=== PATIENT | female | born 1970 | race American Indian/Alaskan Native ===

== ENCOUNTER 2018-01-04 21:54 | Emergency (ER) | payer MEDICAID ==
[2018-01-04 22:16] VITALS: BP 125/79; PULSE 75; RESP 18; TEMP 98.2; O2SAT 95
--- NOTE | 2018-01-04 22:18 | ED PDOC ---
Arrival/HPI - General Historian: Patient <Rosetta Wiggins - Last Filed: 01/04/18 22:20> <Hank Ordoñez - Last Filed: 01/04/18 22:22> - General Time Seen by Provider: 01/04/18 21:57 - History of Present Illness Narrative History of Present Illness (Text): 01/04/18 22:15 47yo female who present to ED for removal of a lodged condom in her vagina. States they couldn't find the Condom yesterday after having sex and assumes is lodged in her vagina. She however denies abdominal pain, back pain, urinary symptoms, fever, other complaint. (FelicianoRosetta A) Past Medical History - Provider Review Nursing Documentation Reviewed: Yes <Rosetta Wiggins - Last Filed: 01/04/18 22:20> Family/Social History - Physician Review Nursing Documentation Reviewed: Yes Family/Social History: Unknown Family HX <Rosetta Wiggins - Last Filed: 01/04/18 22:20> Allergies/Home Meds <Rosetta Wiggins - Last Filed: 01/04/18 22:20> <Hank Ordoñez - Last Filed: 01/04/18 22:22> Allergies/Adverse Reactions: Allergies No Known Allergies Allergy (Verified 01/04/18 22:19) Review of Systems - Physician Review All systems were reviewed & negative as marked: Yes - Review of Systems Constitutional: Normal Eyes: Normal ENT: Normal Respiratory: Normal Cardiovascular: Normal Gastrointestinal: Normal Genitourinary Female: Other (Lodged condom) Musculoskeletal: Normal Skin: Normal Neurological: Normal Endocrine: Normal Hemo/Lymphatic: Normal Psychiatric: Normal <Rosetta Wiggins - Last Filed: 01/04/18 22:20> Physical Exam Vital Signs Reviewed: Yes Temperature: Afebrile Blood Pressure: Normal Pulse: Regular Respiratory Rate: Normal Appearance: Positive for: Well-Appearing, Non-Toxic, Comfortable Pain Distress: None Mental Status: Positive for: Alert and Oriented X 3 - Systems Exam Head: Present: Atraumatic, Normocephalic Pupils: Present: PERRL Extroacular Muscles: Present: EOMI Conjunctiva: Present: Normal Mouth: Present: Moist Mucous Membranes Neck: Present: Normal Range of Motion Respiratory/Chest: Present: Clear to Auscultation, Good Air Exchange. No: Respiratory Distress, Accessory Muscle Use Cardiovascular: Present: Regular Rate and Rhythm, Normal S1, S2. No: Murmurs Abdomen: Present: Normal Bowel Sounds. No: Tenderness, Distention, Peritoneal Signs Genitourinary/Pelvic Exam: Present: Other (Condom noted in vaginal vault) Back: Present: Normal Inspection Upper Extremity: Present: Normal Inspection. No: Cyanosis, Edema Lower Extremity: Present: Normal Inspection. No: Edema Neurological: Present: GCS=15, CN II-XII Intact, Speech Normal Skin: Present: Warm, Dry, Normal Color. No: Rashes Psychiatric: Present: Alert, Oriented x 3, Normal Insight, Normal Concentration <Rosetta Wiggins A - Last Filed: 01/04/18 22:20> Vital Signs Temp Pulse Resp BP Pulse Ox 01/04/18 22:15 98.2 F 75 18 125/79 95 Medical Decision Making <Rosetta Wiggins A - Last Filed: 01/04/18 22:20> <Hank Ordoñez - Last Filed: 01/04/18 22:22> ED Course and Treatment: 01/04/18 22:20 condom was noted in vaginal vault and was removed. Pt denied pain in ED. she was[laced on prophylactic abx. (Rosetta Wiggins A) - PA / DELIVERY DRIVER/SUPERVISOR / Resident Statement /DO has reviewed & agrees with the documentation as recorded. <Hank Ordoñez - Last Filed: 01/04/18 22:22> Disposition/Present on Arrival - Present on Arrival Any Indicators Present on Arrival: No History of DVT/PE: No History of Uncontrolled Diabetes: No Urinary Catheter: No History of Decub. Ulcer: No History Surgical Site Infection Following: None - Disposition Have Diagnosis and Disposition been Completed?: Yes Disposition Time: 22:20 Patient Plan: Discharge <Rosetta Wiggins A - Last Filed: 01/04/18 22:20> <Hank Ordoñez - Last Filed: 01/04/18 22:22> - Disposition Diagnosis: Foreign body Disposition: HOME/ ROUTINE Condition: STABLE Discharge Instructions (ExitCare): Removal of Rectal Foreign Body Additional Instructions: Follow up with your doctor Prescriptions: Cephalexin [Keflex] 500 mg PO TID #21 capsule Referrals: [facility] [place] - [facility] [Outside[facility] - Follow up with primary
== END 2018-01-04 22:27 | disposition home or self-care (01) ==
LOC: ED 21:54
DX: T19.2XXA Foreign body in vulva and vagina, initial encounter (principal); X58.XXXA Exposure to other specified factors, initial encounter; Y92.89 Other specified places as the place of occurrence of the external cause